=== PATIENT | female | born 1960 | race Caucasian/White ===

== ENCOUNTER → 2022-06-10 16:06 | Outpatient (CLI) | payer MEDICARE, SELFPAY ==
--- NOTE | 2022-06-10 16:11 | DI.RAD.S_ITS ---
PROCEDURE: XR HIP W PEL IF DONE BILAT 2V INDICATIONS: Bilateral hip pain TECHNIQUE: AP pelvis with lateral view(s) of the bilateral hip(s). COMPARISON: None. FINDINGS: Bones: No fractures or dislocations and there is only a mild degree of symmetric hip joint osteoarthritis bilaterally.. Pelvic ring appears intact. No suspicious bony lesions. Soft tissues: The visualized bowel gas pattern is normal. No suspicious soft tissue calcifications. IMPRESSION: Mild bilateral hip joint degenerative osteoarthritic change, no trauma found. No subluxation present. Dictated by: Edil Lowe M.D. on 06/10/2022 at 16:35 Approved by: Edil Lowe M.D. on 06/10/2022 at 16:36
--- NOTE | 2022-06-10 16:12 | DI.US.S_ITS ---
PROCEDURE: US PELVIC COMPLETE INDICATIONS: Post menopausal bleeding TECHNIQUE: Real-time scanning was performed of the pelvic organs, with image documentation. Additional endovaginal scanning was necessary due to incomplete visualization of the adnexal and endometrial structures by transabdominal scanning. COMPARISON: None. FINDINGS: Uterus: Uterus is retroverted and normal in size at 6.2 x 2.6 x 3.7 cm. The myometrium is heterogeneous. No discrete uterine fibroids. 5 x 4 x 5 mm echogenic focus is seen in anterior myometrium. 5 x 2 x 4 mm hyperechogenic focus is also seen in anterior myometrium. The endometrium measures 2 mm combined thickness. No gross endometrial mass or fluid. Ovaries: The right ovary measures 2.2 x 1 x 1.1 cm, with a calculated ovarian volume of 1.3 cc. The left ovary measures 7.7 x 3.6 x 6.2 cm, with a calculated ovarian volume of 89.4 cc. 6.6 x 3.6 x 6.2 cm simple appearing cyst is noted in left ovary and show no internal vascularity is. Less than 12 follicles can be seen in each ovary. No adnexal masses are seen. Other: No pathologic free abdominal or pelvic fluid. IMPRESSION: 1. Large simple appearing cyst in left ovary as described above. Sonographic follow-up is recommended. No solid appearing ovarian lesion. No evidence of ovarian torsion. 2. No gross endometrial mass or fluid. 3. Heterogeneous myometrial echotexture. 2 tiny echogenic foci are seen in anterior myometrium which could represent small calcifications. No discrete uterine fibroid is seen. We strive to produce accurate, complete, and clear reports of imaging services. To assist us in improving patient care, this report was composed using standard report templates and voice recognition software. Therefore, it may contain abnormal punctuation, insertions and/or omissions. Occasional wrong-word or sound-alike substitutions may occur. Though we review the report and make efforts to correct it, we do recommend that the report be read carefully in proper context to recognize any text inaccuracies. Dictated by: Main Faustin M.D. on 06/10/2022 at 17:02 Approved by: Main Faustin M.D. on 06/10/2022 at 17:05
== END ==
PROVIDERS: PCP Internal Medicine; Referring Provider Internal Medicine; Visit Provider Internal Medicine
DX: N95.0 Postmenopausal bleeding (principal); N83.201 Unspecified ovarian cyst, right side; M25.552 Pain in left hip; M25.551 Pain in right hip
CPT/HCPCS: 73521; 76830; 76856

== ENCOUNTER → 2022-06-15 16:52 | Outpatient (CLI) | payer MEDICARE, SELFPAY ==
[2022-06-15 18:44] LABS: Cancer Antigen 125 5.7 U/mL (0-35)
== END ==
PROVIDERS: PCP Internal Medicine; Referring Provider Obstetrics & Gynecology; Visit Provider Obstetrics & Gynecology
DX: R19.09 Other intra-abdominal and pelvic swelling, mass and lump (principal); N95.0 Postmenopausal bleeding
CPT/HCPCS: 36415; 86304

== ENCOUNTER 2022-06-30 11:20 | Day surgery (SDC) | payer BC, SELFPAY ==
[2022-06-27 15:23] VITALS: BMI 26.6
--- NOTE | 2022-06-30 | PATH_ITS ---
[facility] Accession Number: [id number] No. of containers..03 Tissue . 01 Material submitted: . PART A: ovary - LEFT OVARY AND FALLOPIAN TUBE AND RIGHT FALLOPIAN TUBE PART B: endocervix - ENDOCERVICAL CURETTAGE PART C: endometrium - ENDOMETRIAL CURETTAGE . 01 Clinical history: . HYSTEROSCOPY D/C/LAPAROSCOPIC OVARIAN CYSTECTOMY . 01 Diagnosis: A. Left Ovary and Fallopian Tubes, Oophorectomy and Bilateral Salpingectomy: Benign serous cystadenoma of ovary. - Negative for significant atypia and malignancy. Fallopian tubes with unilateral benign paratubal cysts. . B. Endocervix, Curettage: Scant benign endocervical epithelial cells and rare minute cluster of endometrial tissue. Negative for dysplasia. . C. Endometrium, Curettage: Scant strips of inactive-appearing endometrial epithelium and detached stroma. Negative for significant atypia. [facility] 07/06/2022 1454 Local . 01 Comment: Specimens B and C are also reviewed by Dr. Christina Bell, who concurs with the given interpretation. Both of these specimens, given the scantiness, may not be public service representative. . 01 Electronically signed: . Italia Philip MD, Pathologist NPI- [id number] . 01 Gross description: . A. Received in formalin labeled left ovary and fallopian tube, and right fallopian tube is a previously partially opened cystic ovary with attached fallopian tube and a separate fallopian tube. The cystic ovary measures 4.5 x 3.6 x 2.5 cm and has a maroon-bennett, slightly bosselated serosal surface. The ovary is sectioned revealing a unilocular cyst with a maroon-cordero wrinkled and glistening internal surface. There are no papillary excrescences identified. There is a thin rim of ovarian stoma identified, which is unremarkable. The attached fallopian tube is fimbriated and measures 5.0 cm in length x 0.4 cm in diameter. The tube is convoluted and remarkable for tubo- ovarian adhesions. The separate fallopian tube is fimbriated and measures 5.3 cm in length x 0.5 cm in diameter. The tube is convoluted. Sectioning of both tubes reveals a stellate lumen. Also, within the specimen container is a 2.5 x 1.3 x 1.0 cm wedge-shaped portion of maroon-bennett soft tissue. Sectioning reveals numerous vessels, consistent with paratubal soft tissue. Credit Reporting Clerk sections are submitted in A1-A3, separate fallopian tube in A3. B. Received in formalin labeled endocervical is a 1.0 x 0.5 x 0.2 cm aggregate of blood-tinged bennett mucoid material with fragments of hemorrhagic tissue. Totally embedded in B1. C. Received in formalin labeled endometrial is a 1.0 x 0.6 x 0.2 cm aggregate of fragmented portions of hemorrhagic tissue admixed with fragments of gauze. Totally embedded in C1. ([id number]) /[facility] 07/01/2022 1848 Local . 01 Pathologist provided ICD-10: N83.209 . 01 CPT . 764799, 346614, [id number] Specimen Comment: A courtesy copy of this report has been sent to [phone] Performed at: 01 [facility] [address] [place] [address], [place], [place] [id number] MD Felix Lewis MD Phone: [phone]
--- NOTE | 2022-06-30 12:17 | PM.HP.1 ---
History of Present Illness History of Present Illness Date Patient Seen: 06/30/22 Time Patient Seen: 14:13 Chief complaint: Hysteroscopy D&C/Laparoscopic Ovarian Cystectomy L Narrative: Patient is a 61-year-old 2 para 2 who presents for a laparoscopic left salpingo-oophorectomy, right salpingectomy, and D&C hysteroscopy. This is being done due to a left ovarian cyst, postmenopausal bleeding with cervical stenosis. Unable to do endometrial biopsy in the office Patient History Surgical History (Updated 06/25/22 @ 19:12 by Violeta Florence) Anesthesia History of ureter repair (~1968) Family & Social History Family History (Updated 06/25/22 @ 19:13 by Violeta Florence) Grandmother Cancer Grandfather Stroke Social History: household members family Tobacco & Substance use: Smoking Status Never smoker Substance Use Type does not use Meds Home Medications and Allergies Home Medications Medication Instructions Recorded Confirmed Type levothyroxine 75 mcg capsule 75 mcg PO DAILY 06/21/22 06/30/22 History Allergies Allergy/AdvReac Type Severity Reaction Status Date / Time codeine AdvReac Mild hot flashes Verified 06/21/22 13:49 Exam Narrative Exam Narrative: HEENT: No thyromegaly, no anterior cervical or supraclavicular lymphadenopathy. Lungs:Clear to auscultation bilaterally, no wheezes. Cardiovascular: Regular rate and rhythm, no murmurs, rubs, or gallops. Abdomen: Well-healed Pfannenstiel scar. No hepatosplenomegaly. No masses palpable. External genitalia: Normal Vagina: Normal Cervix: Stenotic Bimanual exam: 6 Week size anteverted uterus. Mobile. Left adnexal fullness Extremities: No edema Assessment & Plan Assessment & Plan narrative: Assessment: 61-year-old 2 para 2 with a 7 cm left ovarian cyst, postmenopausal bleeding with cervical stenosis Plan: Laparoscopic left salpingo-oophorectomy, and right salpingectomy. D&C hysteroscopy with biopsy of hyperechoic uterine masses. The risks, benefits, and alternatives to the procedure were explained to the patient. The risks including bleeding, infection, injury to the bowel, bladder, or ureters. There is also risk of uterine perforation. She understands all of these risks and agrees to proceed. A full par Q was held and consent form was signed. Time Spent With Patient Time with patient: less than 30 minutes Critical Care time: I spent a total of [] minutes of critical care time on this patient's care today; this time is exclusive of procedural time.
[2022-06-30 12:27] VITALS: BMI 26.6
[2022-06-30 12:38] VITALS: BP 143/76; PULSE 60; RESP 16; TEMP 36.8; O2SAT 99
[2022-06-30] MEDS: LACTATED RINGERS 1,000 ML 42 ML IV (12:51)
--- NOTE | 2022-06-30 14:16 | PM.PREOP ---
Pre-operative Note COVID-19 Criteria for continued procedure: Non-surgical alternatives not available or appropriate per current SOC Interval Note History & Physical reviewed/Exam performed by Physician: Yes Changes to H&P: No H&P completed within 30 days and has changed as indicated here:: 06/30/22
[2022-06-30] MEDS: ACETAMINOPHEN IV 1,000 MG/100 ML VIAL 400 MG IV (14:30)
--- NOTE | 2022-06-30 15:08 | SUR.OPER ---
Lithotomy on padded OR bed, head on pillow, arms secured on padded arm boards at <90 degrees abduction. Legs secured in padded yellow fins stirrups.
[2022-06-30] MEDS: BUPIVACAINE 0.5% W/ EPI (PF) 30 ML VIAL INJ (15:20)
[2022-06-30 15:56] VITALS: BP 105/41; PULSE 57; RESP 12; TEMP 36.8; O2SAT 99
[2022-06-30 15:57] VITALS: BP 101/53; PULSE 59; RESP 23; O2SAT 99
--- NOTE | 2022-06-30 16:02 | P.OP_ITS ---
Operative Date/Time/Diagnoses Date of procedure: 06/30/22 Time of procedure: 16:02 Pre-op diagnosis: 7 cm Left ovarian cyst Postmenopausal bleeding Cervical stenosis Unable to get biopsy in the office Post-op diagnosis: same Procedure & Clinicians Procedure: Procedures Operation Date: 06/30/22 11:45 Actual Procedure Side Surgeon p Hysteroscopy D&C, Rosa James MD s Laparoscopic removal of both tubes & Laparoscopic Left Ovarian Cystectomy Rosa James MD Indications: HUMAN SERVICES PROGRAM SPECIALIST bleeding Cervical stenosis 8cm left ovarian cyst Surgeon: Rosa James Anesthesia Type: General and Local Operative Notes Findings: 6 wk size retroverted uterus 8 cm left ovarian cyst normal tubes normal right ovary normal liver, gallbladder and appendix Closure Type: primary Specimen(s): endometrial curettings, right tube and left tube & ovary Estimated blood loss (mL): 10 Blood products transfused: none Procedure in detail: After informed consent was obtained, the patient was taken to the operating room where she was placed in the dorsal supine position. After adequate general endotracheal anesthesia was achieved, she was placed in the dorsal lithotomy position, and prepped and draped in the usual sterile fashion. A time-out was performed. A bivalve speculum was placed into the vagina and a single -tooth tenaculum was placed on the anterior lip of the cervix. Endocervical curettings were obtained. The cervix was then sequentially dilated. Sharp curettage was performed to obtain endometrial curettings. The Zumi uterine manipulator was then placed into the endometrial cavity and the balloon inflated. The single-tooth tenaculum was removed from the anterior lip of the cervix. The bivalve speculum was removed from the vagina. Attention was then turned to the abdomen where 6 cc of 0.5% Marcaine with epinephrine were injected in the umbilical fold. A 5 mm incision was made. The Veress needle was placed into the peritoneal cavity, and its placement confirmed by aspiration and drop test. The abdominal cavity was insufflated with 4.2 L of CO2. The Veress needle was removed, and a 5 mm trocar was placed without difficulty. Initial inspection of the abdomen and pelvis as noted above. Two other 5 mm incisions were made 4 cm lateral to the midline at the level of the umbilicus after 6 cc of 0.5% Marcaine with epinephrine were injected. Two 5 mm trocars were placed under direct visualization. The left tube and ovary were grasped with an atraumatic grasper. Using the power seal, the infundibulopelvic ligament on the left side was cauterized and cut. The mesosalpinx was cauterized and cut. The tube was amputated at the cornua. The utero-ovarian vessels were cauterized and cut. The left tube and ovary were placed into the anterior cul-de-sac. The right tube was grasped with an atraumatic grasper. Using the PlasmaKinetic the mesosalpinx was cauterized and cut all the way down to the cornua of the uterus. The tube was amputated at the cornua. The right tube was placed into the anterior cul-de-sac. 6 cc of 0.5% Marcaine with epinephrine were injected above the umbilical fold. A 12 mm incision was made. A 12 mm trocar was placed under direct visualization. An endobag was placed through the suprapubic incision. The left tube and ovary and right tube were placed into the endobag. The trocar was removed and the edges of the bag were brought up through the incision. A spinal needle on a 30 cc syringe was placed into the endobag and the ovarian cyst was drained. The endobag was then removed without spillage through the suprapubic incision. The suprapubic fascia was closed with 0 Vicryl in a running fashion. The pelvis and abdomen were examined and hemostasis was achieved. The pelvis was copiously irrigated. The instruments were removed from the abdomen. The CO2 was allowed to escape. All of the incisions were closed with 4-0 Monocryl in a subcuticular fashion. Hemostasis was achieved. Steri-Strips and Allevyn dressings were placed. The Zumi uterine manipulator was removed from the uterus. Sponge, lap, and instrument counts were correct x2. The patient tolerated the procedure well, and was taken to PACU in stable condition. Complications: none Post-operative Condition: stable Disposition: PACU Plan for aftercare: Home after recovery
[2022-06-30 16:05] VITALS: BP 102/43; PULSE 54; RESP 15; O2SAT 100
[2022-06-30 16:10] VITALS: BP 108/41; PULSE 65; RESP 24; TEMP 36.2; O2SAT 99
[2022-06-30 16:13] VITALS: BP 113/40; PULSE 61; RESP 23; TEMP 36.8; O2SAT 100
== END 2022-06-30 17:03 | disposition home or self-care (01) ==
PROVIDERS: PCP Internal Medicine; Referring Provider Obstetrics & Gynecology; Visit Provider Obstetrics & Gynecology
PROC: 0UDB8ZZ Extraction of Endometrium, Via Natural or Artificial Opening Endoscopic (ICD-10-PCS; CPT 58558; principal; 2022-06-30 11:45)
PROC: (CPT 58661; 2022-06-30 11:45)
DX: N95.0 Postmenopausal bleeding (principal); N88.2 Stricture and stenosis of cervix uteri; D27.1 Benign neoplasm of left ovary; N83.8 Other noninflammatory disorders of ovary, fallopian tube and broad ligament
CPT/HCPCS: 58661; 58120; J0131; J1100; J1885; J2250; J2405; J2704; J3010

== ENCOUNTER → 2022-08-29 16:38 | Outpatient (CLI) | payer BC, SELFPAY ==
--- NOTE | 2022-08-29 | DI.MG.S_ITS ---
BILATERAL DIGITAL SCREENING MAMMOGRAM 3D/2D WITH CAD: 08/29/2022 CLINICAL: Routine screening. Baseline, by default. No prior exams were available for comparison. Both breasts are heterogeneously dense, which may obscure small masses (category c / 51-75% glandular tissue). Current study was also evaluated with a Computer Aided Detection (CAD) system. No significant masses, calcifications, or other findings are seen in either breast. IMPRESSION: NEGATIVE There is no mammographic evidence of malignancy. A 1 year screening mammogram is recommended. Based on the Tyrer Cuzick model (a risk assessment model) the patient's lifetime risk is 11.7% and her 10 year risk is 5.1%. According to the ACR, ACS, and NCCN guidelines, an annual breast MRI exam along with mammogram is recommended if the patient's lifetime risk is 20% or greater. This exam was interpreted at Station ID: [id number]. NOTE: For mammograms, a report in lay terms will be sent to the patient. Approximately 15% of breast malignancies will not be visualized mammographically. In the management of a palpable breast mass, a negative mammogram must not discourage biopsy of a clinically suspicious lesion. Electronically Signed By: Rush roland/yasmin:08/30/2022 10:23:22 letter sent: Normal Exam ACR BI-RADS Category 1: Negative [id number]
== END ==
PROVIDERS: PCP Internal Medicine; Referring Provider Internal Medicine; Visit Provider Internal Medicine
DX: Z12.31 Encounter for screening mammogram for malignant neoplasm of breast (principal)
CPT/HCPCS: 77063; 77067

== ENCOUNTER → 2024-03-23 08:05 | Outpatient (CLI) | payer BC, SELFPAY ==
--- NOTE | 2024-03-23 08:07 | DI.MG.S_ITS ---
BILATERAL DIGITAL SCREENING MAMMOGRAM 3D/2D WITH CAD: 03/23/2024 CLINICAL: Routine screening. Comparison is made to exam dated: 08/29/2022 mammogram - [facility]. The breasts are heterogeneously dense, which may obscure small masses (category c / 51-75% glandular tissue). Current study was also evaluated with a Computer Aided Detection (CAD) system. No significant masses, calcifications, or other findings are seen in either breast. There has been no significant interval change. IMPRESSION: NEGATIVE There is no mammographic evidence of malignancy. A 1 year screening mammogram is recommended. Based on the Tyrer Cuzick model (a risk assessment model) the patient's lifetime risk is 11.0% and her 10 year risk is 5.1%. According to the ACR, ACS, and NCCN guidelines, an annual breast MRI exam along with mammogram is recommended if the patient's lifetime risk is 20% or greater. This exam was interpreted at Station ID: [id number]. NOTE: For mammograms, a report in lay terms will be sent to the patient. Approximately 15% of breast malignancies will not be visualized mammographically. In the management of a palpable breast mass, a negative mammogram must not discourage biopsy of a clinically suspicious lesion. Electronically Signed By: Rush roland/yasmin:03/25/2024 07:21:00 letter sent: Normal Exam ACR BI-RADS Category 1: Negative
== END ==
PROVIDERS: PCP Internal Medicine; Referring Provider Internal Medicine; Visit Provider Internal Medicine
DX: Z12.31 Encounter for screening mammogram for malignant neoplasm of breast (principal); R92.333 Mammographic heterogeneous density, bilateral breasts
CPT/HCPCS: 77063; 77067